=== PATIENT | female | born 1940 ===

== ENCOUNTER 2017-11-29 14:00 | Outpatient (RCR) | payer OTHER ==
[~2017-11-29 14:00] MED LIST: ACETAMINOPHEN-1 EAC1 ORAL; ASPIRIN-LOW81 MG PO; LEVOTHYROXINE PO; LOMOTIL TABLET1 EAC1 PO; REGLAN10 MG PO; VITAMIN B; VITAMIN D3; VITAMIN D3 PO; ZYNCOL30 MG PO; [UNRECOGNIZED DRUG - OTHER]; [UNRECOGNIZED DRUG - OTHER] PO; [UNRECOGNIZED DRUG - REMARK]
== END 2017-12-21 | disposition home or self-care (01) ==
LOC: PTY 14:00
DX: M54.2 Cervicalgia (principal)
CPT/HCPCS: 97110; 97140; 97162; G0283

== ENCOUNTER 2017-12-23 10:30 | Outpatient (RCR) | payer OTHER | END 2018-01-18 | disposition home or self-care (01) | LOC: PTY 10:30 | DX: M54.2 Cervicalgia (principal) | CPT/HCPCS: 97110; 97112; 97140; G0283 ==

== ENCOUNTER 2018-02-17 09:45 | Outpatient (RCR) | payer OTHER | END 2018-02-18 | disposition home or self-care (01) | LOC: PTY 09:45 | DX: M54.2 Cervicalgia (principal) ==

== ENCOUNTER 2018-02-24 09:45 | Outpatient (RCR) | payer OTHER | END 2018-03-20 | disposition home or self-care (01) | LOC: PTY 09:45 | DX: M54.2 Cervicalgia (principal) ==

== ENCOUNTER 2018-03-24 09:45 | Outpatient (RCR) | payer OTHER | END 2018-04-20 | disposition home or self-care (01) | LOC: PTY 09:45 | DX: M54.2 Cervicalgia (principal) ==